=== PATIENT | male | born 1995 | race African-American/Black ===

== ENCOUNTER 2016-05-14 20:02 | Emergency (ER) | payer OTHER ==
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
== END 2016-05-14 20:03 | disposition home or self-care (01) ==
LOC: ER 20:02
PROC: 0XQ Anatomical Regions, Upper Extremities, Repair (ICD-10-PCS; principal; 2016-05-14)
DX: S42.101A Fracture of unspecified part of scapula, right shoulder, initial encounter for closed fracture (principal); S01.00XA Unspecified open wound of scalp, initial encounter; S01.301A Unspecified open wound of right ear, initial encounter; S41.009A Unspecified open wound of unspecified shoulder, initial encounter; T15.92XA Foreign body on external eye, part unspecified, left eye, initial encounter; F17.200 Nicotine dependence, unspecified, uncomplicated; W34.09XA Accidental discharge from other specified firearms, initial encounter
CPT/HCPCS: 70450; 73200-RT; 90471; 90714; 96374; 96375; 96376; 99285; J0690; J1170; J2405